=== PATIENT | male | born 1945 | race Caucasian/White ===

== ENCOUNTER → 2016-10-03 | Outpatient (CLI) | payer MEDICARE ==
[~2016-10-03] MED LIST: ALEVE; FLOMAX0.4 M1 PO; GLIPIZIDE10 MG/BOTT PO; HYDROCODON-ACE1 EAC9; LISINOPRIL5 MG PO; MEDROL DOSEPAK4 MG PO; ONGLYZA5 MG PO; SIMVASTATIN40 MG PO
--- NOTE | ~2016-10-03 | US77 ---
[facility] A Service of [facility] RADIOLOGY TEXT RESULTS PATIENT: COSME VENEGAS LOCATION: [facility] : 41 UNIT #: [id number] AGE: [address]: HERMELINDA DAVALOS MD SEX: M ORDER DR: [id number] [facility] [address] [place], [place] [address] [id number] O MR#: [id number] Acc #: [id number] NAME: COSME VENEGAS : 1945 SEX: M STUDY DATE/TIME: 10/03/2016 13:56 UNIT: CGUS ROOM: STUDY DESCRIPTION: US Kidney Bilateral Complete Attending Physician: Hermelinda Davalos M.D. Referring Physician: Hermelinda Davalos M.D. Ordering Physician: Hermelinda Davalos M.D. Primary Care Physician: Hermelinda Davalos M.D. MEDICAL IMAGING REPORT This report is preliminary unless electronic signature is present EXAM Bilateral renal ultrasound. DATE 10/03/2016 HISTORY Abnormal kidney function. Renal cyst. BUN 17. Creatinine 1.17. Previous documentation of chronic kidney disease stage 3, hypertension controlled on medication. COMPARISON Bilateral renal ultrasound, 03/09/2015. FINDINGS Right kidney measures 10.1 x 5.8 and 5.2 cm. The left kidney measures 1.2 x 6.0 x 6.0 cm. Both kidneys maintain normal cortical thickness and cortical echotexture. No cystic or solid renal mass lesion is identified. Of particular note, previously described region of hypoechogenicity in the right upper renal pole on the 2014 ultrasound has no abnormal correlate today. Urinary bladder has a normal appearance. No shadowing renal stone is identified within either kidney. IMPRESSION 1. Previously described hypoechoic focus in the right kidney on the 2015 ultrasound has no abnormal correlate today. No suspicious cystic or solid renal mass lesion is identified. No shadowing renal stone or hydronephrosis is seen. [facility] A Service of [facility] RADIOLOGY TEXT RESULTS PATIENT: COSME VENEGAS LOCATION: [facility] : 41 UNIT #: [id number] AGE: [address]: HERMELINDA DAVALOS MD SEX: M ORDER DR: Dictated by... Kate Duke M.D. THIS IS AN ELECTRONICALLY VERIFIED REPORT Kate Duke M.D. at 10/04/2016 2:10 PM ADOLFO/taran TD: 10/03/2016 23:11 JOB #: [id number] MEDICAL IMAGING REPORT Page 1 of 1 COPY
== END | disposition home or self-care (01) ==
LOC: CGUS 13:30
DX: N28.1 Cyst of kidney, acquired (principal); Z87.448 Personal history of other diseases of urinary system
CPT/HCPCS: 76770